=== PATIENT | male | born 1985 | race African-American/Black ===

== ENCOUNTER 2019-06-23 14:59 | Emergency (ER) | payer OTHER, MEDICAID ==
[~2019-06-23] VITALS: Ht 177.8 cm; Wt 102.1 kg
--- NOTE | 2019-06-23 15:09 | NUR ---
Dr Field at the bedside for MSE.
--- NOTE | 2019-06-23 16:24 | NUR ---
Patient discharged to home in stable conditon. Written and verbal after care instructions given. Patient verbalizes understanding of instructions.
[2019-06-23 16:25] VITALS: BP 117/66
== END 2019-06-23 16:27 | disposition home or self-care (01) ==
LOC: ER 14:59
DX: R51 Headache (principal)
CPT/HCPCS: A4663